=== PATIENT | male | born 1965 | race Caucasian/White ===

== ENCOUNTER 2021-04-11 02:34 | Inpatient (IN) ==
[2021-04-11] MEDS ORDERED: Lactated Ringers 1000 ml BAG 1,000 ML IV ONE ×2 (02:49→06:35)
[2021-04-11] MEDS ORDERED: Al Hydrox/Mg Hydrox/Simet LIQ 30 ML UDC PO ONE (02:49)
[2021-04-11 03:45] LABS: ABS Lymphocytes 0.7 10^3/ul (1.0-4.8); ABS Monocytes 0.8 10^3/ul (0-0.8); ABS Neutrophils 11.5 10^3/ul (1.5-7.7); Eosinophil % 0.1 %; Hematocrit 42 % (42-52); Hemoglobin 14.3 g/dL (14.0-18.0); Lymphocyte % 5.3 %; Mean Corpuscular HGB Conc 34 g/dL (31-36); Mean Corpuscular Hemoglobin 32 pg (27-31); Mean Corpuscular Volume 96 fL (80-94); Mean Platelet Volume 8.6 fL (7.4-10.4); Platelet Count 231 10^3/uL (150-450); Red Blood Count 4.42 10^6 /uL (4.18-5.48); Red Cell Distribution Width 13 % (10-15); White Blood Count 12.9 10^3/uL (3.5-10.8)
[2021-04-11 03:58] LABS: ALT 19 U/L (7-52); AST 24 U/L (13-39); Albumin/Globulin Ratio 1.6 (1-3); Alkaline Phosphatase 45 U/L (35-149); Anion Gap 6 mmol/L (2-11); Blood Urea Nitrogen 13 mg/dL (6-24); C Reactive Protein < 1.00 mg/L (<8.01); CO2 Carbon Dioxide 29 mmol/L (22-32); Calcium 9.1 mg/dL (8.6-10.3); Chloride 104 mmol/L (101-111); Globulin 2.5 g/dL (2-4); Glucose 145 mg/dL (70-100); Lipase 23 U/L (11.0-82.0); Potassium 3.8 mmol/L (3.5-5.0); Sodium 139 mmol/L (135-145); Total Protein 6.5 g/dL (6.4-8.9)
[2021-04-11] MEDS ORDERED: Iohexol 300 (CONTRAST) 10 ML SDV IV ONE ×2 (04:21→04:24)
[2021-04-11] MEDS ORDERED: Droperidol 5 MG/2 ML 2 ML VIAL IV ONE (04:33)
[2021-04-11] MEDS ORDERED: Morphine 4 MG/ML VIAL (1 ml) IV PRN (06:35)
[2021-04-11] MEDS ORDERED: Morphine 4 MG/ML VIAL (1 ml) IV ONE (06:35)
[2021-04-11 08:21] LABS: Rapid COVID-19 Molecular Undetected (Undetected)
[2021-04-11 09:18] LABS: Urine Appearance Clear; Urine Bilirubin Negative (Negative); Urine Blood Negative (Negative); Urine Color Yellow; Urine Glucose Negative (Negative); Urine Ketones Trace (Negative); Urine Nitrite Negative (Negative); Urine Protein 1+(30 mg/dL) (Negative); Urine Specific Gravity 1.053 (1.002-1.030); Urine Urobilinogen Negative (Negative)
[2021-04-11 09:47] LABS: Urine Bacteria Absent (Absent); Urine Red Blood Cell Trace(0-2/hpf) (Absent); Urine White Blood Cell Absent (Absent)
[2021-04-11] MEDS ORDERED: ceFAZolin 2 GM (*##) 100 ML IVPB SCH (10:00)
[2021-04-11] MEDS ORDERED: HYDROmorphone 0.5 MG/0.5 ML SYRINGE IV SLOW PU PRN (10:07)
[2021-04-11] MEDS: Lactated Ringers 1000 ml BAG 1,000 ML IV SCH (11:36)
[2021-04-11] MEDS: Acetaminophen IV 1 GM/100ML 100 ML IV PRN (13:16)
[2021-04-11] MEDS ORDERED: Pantoprazole VIAL 40 MG VIAL IV SCH (16:00)
[2021-04-11] MEDS: Ondansetron 4 mg VIAL 2 MG/ML 2 ml VIAL IV PRN ×2 (17:06→23:28)
[2021-04-12] MEDS: Lactated Ringers 1000 ml BAG 1,000 ML IV SCH (02:18)
[2021-04-12] MEDS: Ondansetron 4 mg VIAL 2 MG/ML 2 ml VIAL IV PRN (05:04)
[2021-04-12 06:52] LABS: ABS Lymphocytes 0.7 10^3/ul (1.0-4.8); ABS Monocytes 1.4 10^3/ul (0-0.8); ABS Neutrophils 9.5 10^3/ul (1.5-7.7); Hematocrit 43 % (42-52); Hemoglobin 14.9 g/dL (14.0-18.0); Lymphocyte % 6.3 %; Mean Corpuscular HGB Conc 35 g/dL (31-36); Mean Corpuscular Hemoglobin 33 pg (27-31); Mean Corpuscular Volume 95 fL (80-94); Mean Platelet Volume 8.3 fL (7.4-10.4); Platelet Count 220 10^3/uL (150-450); Red Blood Count 4.54 10^6 /uL (4.18-5.48); Red Cell Distribution Width 13 % (10-15); White Blood Count 11.6 10^3/uL (3.5-10.8)
[2021-04-12 07:06] LABS: Calcium 9.1 mg/dL (8.6-10.3)
[2021-04-12] MEDS: Pantoprazole VIAL 40 MG VIAL IV SCH ×2 (12:23→22:03)
[2021-04-12] MEDS: Acetaminophen IV 1 GM/100ML 100 ML IV PRN (16:28)
[2021-04-13] MEDS: Acetaminophen IV 1 GM/100ML 100 ML IV PRN ×2 (05:01→20:14)
[2021-04-13] MEDS: Lactated Ringers 1000 ml BAG 1,000 ML IV SCH ×2 (06:22→16:57)
[2021-04-13 07:26] LABS: Calcium 8.3 mg/dL (8.6-10.3); Magnesium 1.7 mg/dL (1.9-2.7); Phosphorus 2.4 mg/dL (2.5-5.0); Potassium 3.7 mmol/L (3.5-5.0)
[2021-04-13 07:37] LABS: ABS Eosinophils 0.1 10^3/ul (0-0.6); ABS Lymphocytes 1.3 10^3/ul (1.0-4.8); ABS Monocytes 1.1 10^3/ul (0-0.8); ABS Neutrophils 6.2 10^3/ul (1.5-7.7); Eosinophil % 0.7 %; Hematocrit 38 % (42-52); Hemoglobin 13.1 g/dL (14.0-18.0); Lymphocyte % 15.3 %; Mean Corpuscular HGB Conc 35 g/dL (31-36); Mean Corpuscular Hemoglobin 33 pg (27-31); Mean Corpuscular Volume 96 fL (80-94); Mean Platelet Volume 8.1 fL (7.4-10.4); Platelet Count 177 10^3/uL (150-450); Red Blood Count 3.96 10^6 /uL (4.18-5.48); Red Cell Distribution Width 13 % (10-15); White Blood Count 8.7 10^3/uL (3.5-10.8)
[2021-04-13] MEDS: Pantoprazole VIAL 40 MG VIAL IV SCH ×2 (08:58→20:10)
[2021-04-14] MEDS: Lactated Ringers 1000 ml BAG 1,000 ML IV SCH ×2 (03:57→15:30)
[2021-04-14] MEDS ORDERED: Iohexol 300 (CONTRAST) 10 ML SDV IV ONE (08:28)
[2021-04-14] MEDS: Pantoprazole VIAL 40 MG VIAL IV SCH ×2 (09:25→22:29)
[2021-04-14] MEDS: Acetaminophen IV 1 GM/100ML 100 ML IV PRN (13:08)
[2021-04-15 07:11] LABS: ABS Eosinophils 0.2 10^3/ul (0-0.6); ABS Lymphocytes 1.6 10^3/ul (1.0-4.8); ABS Monocytes 0.7 10^3/ul (0-0.8); ABS Neutrophils 3.7 10^3/ul (1.5-7.7); Hematocrit 38 % (42-52); Hemoglobin 13.2 g/dL (14.0-18.0); Lymphocyte % 25.6 %; Mean Corpuscular HGB Conc 35 g/dL (31-36); Mean Corpuscular Hemoglobin 33 pg (27-31); Mean Corpuscular Volume 95 fL (80-94); Mean Platelet Volume 7.6 fL (7.4-10.4); Platelet Count 192 10^3/uL (150-450); Red Blood Count 3.96 10^6 /uL (4.18-5.48); Red Cell Distribution Width 13 % (10-15); White Blood Count 6.2 10^3/uL (3.5-10.8)
[2021-04-15 07:13] LABS: Calcium 8.4 mg/dL (8.6-10.3); Potassium 3.5 mmol/L (3.5-5.0)
[2021-04-15] MEDS: Pantoprazole VIAL 40 MG VIAL IV SCH (08:58)
[2021-04-15 08:59] VITALS: BP 121/78
== END 2021-04-15 10:45 | disposition home or self-care (01) | DRG 247 ==
LOC: SSU 02:34 → ED 02:34 → SSU 13:38
PROVIDERS: ADMIT Surgery Surgical Critical Care; ATTEND Surgery Surgical Critical Care